=== PATIENT | female | born 1990 ===

== ENCOUNTER 2025-03-21 08:02 | Inpatient (IN) | payer OTHER ==
[2025-03-21] VITALS (53 sets, daily range): BP systolic 93–150; BP diastolic 52–99
[2025-03-21] MEDS ORDERED: Penicillin G Potassium 5,000,000 UNITS in NS 250 ML IV ONE (08:45)
[2025-03-21] MEDS ORDERED: Acetaminophen 500 MG Tab PO PRN (08:45)
[2025-03-21] MEDS ORDERED: Methylergonovine Maleate 0.2MG / ML 1ML Amp IM PRN ×2 (08:45→22:15)
[2025-03-21] MEDS ORDERED: Tranexamic Acid 100 ML IV SCH (08:45)
[2025-03-21] MEDS ORDERED: Carboprost Tromethamine 250 MCG/ML 1ML Amp IM PRN (08:45)
[2025-03-21] MEDS ORDERED: OXYTOCIN/RINGER'S LACTATE 500 ML IV PRN (08:45)
[2025-03-21] MEDS ORDERED: Ondansetron HCl 2 MG / ML 2ML Vial IV PRN (08:45)
[2025-03-21] MEDS ORDERED: Oxytocin 10 Unit / ML Vial IM PRN (08:45)
[2025-03-21] MEDS ORDERED: Misoprostol 200 MCG Tab PR PRN ×2 (08:45→22:10)
[2025-03-21] MEDS ORDERED: Lactated Ringer's 1,000 ML IV PRN (08:45)
[2025-03-21] MEDS ORDERED: Misoprostol 200 MCG Tab BC PRN (08:45)
[2025-03-21] MEDS ORDERED: Calcium Carbonate 500 MG Tab Chew PO SCH (08:50)
[2025-03-21] MEDS ORDERED: PRENATAL TABLE1 EAC2 (09:09)
[2025-03-21 09:19] LABS: BASOPHILS ABSOLUTE AUTO 0.03 K/mm3 (0.00-0.23); BASOPHILS PERCENT AUTO 0 % (0-2); EOSINOPHILS ABSOLUTE AUTO 0.02 K/mm3 (0.00-0.68); EOSINOPHILS PERCENT AUTO 0 % (0-6); Hematocrit 34.1 % (33.0-51.0); Hemoglobin 11.6 g/dL (11.5-16.0); IMMATURE GRAN ABSOLUTE AUTO 0.18 K/mm3 (0.00-0.10); IMMATURE GRAN PERCENT AUTO 1 % (0-1); LYMPHOCYTES ABSOLUTE AUTO 2.01 K/mm3 (0.84-5.20); LYMPHOCYTES PERCENT AUTO 13 % (21-46); MONOCYTES ABSOLUTE AUTO 0.71 K/mm3 (0.16-1.47); MONOCYTES PERCENT AUTO 4 % (4-13); Mean Corpuscular HGB 29.6 pg (26.0-34.0); Mean Corpuscular Volume 87 fL (80-100); NEUTROPHILS ABSOLUTE AUTO 13.03 K/mm3 (1.96-9.15); NEUTROPHILS PERCENT AUTO 82 % (41-73); Platelet Count 310 K/mm3 (150-400); RDW Coefficient Variation 13.7 % (11.7-14.2); RDW Standard Deviation 43.8 fL (35.1-46.3); Red Blood Cell Count 3.92 M/mm3 (3.80-5.20); White Blood Cell Count 15.98 K/mm3 (4.00-11.30)
[2025-03-21] MEDS ORDERED: Lactated Ringer's 1,000 ML IV SCH ×4 (09:25→22:10)
[2025-03-21] MEDS ORDERED: ePHEDrine Sulfate 50 MG/ML 1ML Injection XX PRN (09:25)
[2025-03-21] MEDS ORDERED: FentaNYL 2mcg/ml-Bup 0.1% Epd 250 ML EPI PRN (09:25)
[2025-03-21] MEDS ORDERED: Penicillin G Potassium 2,500,000 UNITS in Dextrose 5% 100 ML IV SCH (12:00)
[2025-03-21 12:13] LABS: U Amphetamine Screen Not Detected; U Barbituate Screen Not Detected; U Benzodiazapine Screen Not Detected; U Buprenorphine Screen Not Detected; U Cannabinoids Screen DETECTED; U Cocaine Screen Not Detected; U Methadone Screen Not Detected; U Methamphetamine Screen Not Detected; U Opiates Screen Not Detected; U Oxycodone Screen Not Detected; U Phencyclidine Screen Not Detected
[2025-03-21] MEDS ORDERED: Betamethasone Sod Phos/Acetate 6 MG/ML 5ML VIAL ONE (12:59)
[2025-03-21] MEDS ORDERED: Betamethasone Sod Phos/Acetate 6 MG/ML 5ML VIAL IM ONE (13:05)
[2025-03-21] MEDS ORDERED: OXYTOCIN/RINGER'S LACTATE 500 ML IV SCH ×2 (19:05→22:05)
[2025-03-21] MEDS ORDERED: Diphth,Pertuss(Acell),Tet Vac 0.5 ML VIAL IM ONE (22:00)
[2025-03-21] MEDS ORDERED: Oxytocin 10 Unit / ML Vial IM ONE (22:05)
[2025-03-21] MEDS ORDERED: Docusate Sodium 100 MG Cap PO PRN (22:05)
[2025-03-21] MEDS ORDERED: Lanolin Cream TOP PRN (22:05)
[2025-03-21] MEDS ORDERED: Ibuprofen 400 MG Tab PO PRN (22:05)
[2025-03-21] MEDS ORDERED: Witch Hazel/Glycerin PADS TOP PRN (22:05)
[2025-03-21] MEDS ORDERED: Ketorolac Tromethamine 30mg Vial IV PRN (22:05)
[2025-03-21] MEDS ORDERED: Acetaminophen 325 MG TABLET PO PRN (22:10)
[2025-03-21] MEDS ORDERED: Rho(D) Immune Globulin 300 MCG / SYR IM ONE (22:10)
[2025-03-21] MEDS ORDERED: Benzocaine Topical Anesthetic Spray 60GM TOP PRN (22:10)
[2025-03-21] MEDS ORDERED: Measles/Mumps/Rubella Vaccine 0.5 ML Vial SC ONE (22:10)
[2025-03-21] MEDS ORDERED: Acetaminophen/Codeine 300-30 mg PO PRN (22:10)
[2025-03-22 05:06] VITALS: BP 125/59
[2025-03-22 06:33] LABS: BASOPHILS ABSOLUTE AUTO 0.03 K/mm3 (0.00-0.23); BASOPHILS PERCENT AUTO 0 % (0-2); EOSINOPHILS PERCENT AUTO 0 % (0-6); Hematocrit 27.6 % (33.0-51.0); Hemoglobin 9.1 g/dL (11.5-16.0); IMMATURE GRAN ABSOLUTE AUTO 0.25 K/mm3 (0.00-0.10); IMMATURE GRAN PERCENT AUTO 1 % (0-1); LYMPHOCYTES ABSOLUTE AUTO 2.05 K/mm3 (0.84-5.20); LYMPHOCYTES PERCENT AUTO 12 % (21-46); MONOCYTES ABSOLUTE AUTO 1.04 K/mm3 (0.16-1.47); MONOCYTES PERCENT AUTO 6 % (4-13); Mean Corpuscular HGB 29.1 pg (26.0-34.0); Mean Corpuscular Volume 88 fL (80-100); Mean Platelet Volume 11.4 fL (9.1-12.4); NEUTROPHILS PERCENT AUTO 81 % (41-73); Platelet Count 260 K/mm3 (150-400); RDW Coefficient Variation 13.5 % (11.7-14.2); RDW Standard Deviation 43.5 fL (35.1-46.3); Red Blood Cell Count 3.13 M/mm3 (3.80-5.20); White Blood Cell Count 17.57 K/mm3 (4.00-11.30)
[2025-03-22 08:12] VITALS: BP 110/76
[2025-03-22] MEDS ORDERED: Prenatal Vit/FE Fumarate/FA 1 Tab PO SCH (09:00)
[2025-03-22 12:48] VITALS: BP 131/82
[2025-03-22] MEDS ORDERED: Acetaminophen 500 MG Tab PO PRN (14:35)
[2025-03-22 15:51] VITALS: BP 144/83
[2025-03-22 16:56] LABS: HEPATITIS B SURFACE ANTIGEN Negative (Negative)
[2025-03-22 21:28] VITALS: BP 120/82
--- NOTE | 2025-03-22 23:10 | NUR ---
DISCHARGE TEACHING COMPLETE. PT AWARE JASMINE TEAM HERE TO TAKE BABY TO [facility]. PATIENT WORKING ON GETTING RIDE TO COME PICK HER ON FOB UP WITH THE PLAN TO MEET BABY AT [facility].
[2025-03-23 09:14] LABS: HIV 1,2 COMBO ANTIGEN/ANTIBODY Negative (Negative)
[2025-03-23 09:17] LABS: HSV 1 GLYCOPROTEIN G AB, IGG 1.93 IV (<=0.89); HSV 2 GLYCOPROTEIN G AB, IGG 8.12 IV (<=0.89)
--- NOTE | 2025-03-25 08:40 | NUR ---
PPFU PHONE APPT, PT UP IN [place] WITH HER BABY. PT STATES SHE IS FEELING WELL, DENIES PAIN AND IS NOT TAKING ANY MEDICATIONS. DENIES ANY HEADACHES, BLURRED VISION, DIZZINESS OR SEEING SPOTS. STATES HER LOCHIA IS DECREASING. IS VOIDING WITHOUT DIFFICULTY AND HAD A BM YESTERDAY. DENIES ANY SWELLING. IS PUMPING AND STATES THAT IS GOING WELL, AND NO NO NIPPLE DISCOMFORT OR TISSUE BREAKDOWN. STATES SHE NEEDS TO CALL BHARAT T[facility] OFFICE TO SCHEDULE HER PPFU WITH HER. PT STATES BABY IS DOING WELL. PT HAS NO QUESTIONS OR CONCERNS AT THIS TIME.
== END 2025-03-22 23:20 | disposition home or self-care (01) | DRG 806 ==
LOC: OBS 08:02 → BC 08:04 → OBS 08:57 → BC 09:04
PROVIDERS: Family Medicine; ADMIT Registered Nurse Community Health
PROC: 10E0XZZ Delivery of Products of Conception, External Approach (ICD-10-PCS; principal; 2025-03-21)
PROC: 10907ZC Drainage of Amniotic Fluid, Therapeutic from Products of Conception, Via Natural or Artificial Opening (ICD-10-PCS; 2025-03-21)
DX: O60.14X0 Preterm labor third trimester with preterm delivery third trimester, not applicable or unspecified (principal); O99.324 Drug use complicating childbirth; Z37.0 Single live birth; Z3A.34 34 weeks gestation of pregnancy; O77.0 Labor and delivery complicated by meconium in amniotic fluid; O35.13X0 Maternal care for (suspected) chromosomal abnormality in fetus, Trisomy 21, not applicable or unspecified; O99.334 Smoking (tobacco) complicating childbirth; F12.90 Cannabis use, unspecified, uncomplicated; Z88.2 Allergy status to sulfonamides
CPT/HCPCS: 36415; 51702; 76805; 82947; 84443; 85025; 86695; 86696; 87081; 87150; 87340; 87389; A9270; J0702; J1885; J2540; J2590; J7050; J7120

== ENCOUNTER → 2025-04-13 | Outpatient (CLI) | payer OTHER ==
[~2025-04-13] MED LIST: PRENATAL TABLE1 EAC2
== END ==
LOC: LAB SHORT 11:55 → LAB 11:55
DX: L02.31 Cutaneous abscess of buttock (principal)
CPT/HCPCS: 87070; 87075; 87077; 87147; 87186; 87205

== ENCOUNTER → 2025-09-19 | Outpatient (CLI) | payer OTHER | LOC: LAB 19:11 → LAB SHORT 19:11 | DX: N39.0 Urinary tract infection, site not specified (principal) | CPT/HCPCS: 87086 ==